=== PATIENT | male | born 1995 | race Caucasian/White ===

== ENCOUNTER 2017-06-12 13:56 | Emergency (ER) | payer OTHER ==
[~2017-06-12] VITALS: Ht 172.7 cm; Wt 71.2 kg
[2017-06-12 14:00] VITALS: BP 127/85
[2017-06-12] MEDS ORDERED: SODIUM CHLORIDE 0.9% 1,000 ML IV ONE (14:13)
[2017-06-12] MEDS ORDERED: SODIUM CHLORIDE 0.9% 1,000ML IVBOLUS ONE (14:30)
[2017-06-12 14:41] LABS: HEMATOCRIT 51.6 % (39.2-51.8); HEMOGLOBIN 17.4 g/dL (13.7-18.0)
[2017-06-12 14:48] LABS: BLOOD UREA NITROGEN 11 mg/dL (7-18)
[2017-06-12 14:52] LABS: ASPARTATE AMINO TRANSFERASE 16 U/L (15-37)
== END 2017-06-12 18:19 | disposition home or self-care (01) ==
LOC: ED 17:45
DX: K80.20 Calculus of gallbladder without cholecystitis without obstruction (principal)
CPT/HCPCS: 36415; 76700; 80053; 81003; 83690; 85025; 99285